=== PATIENT | female | born 1985 | race Hispanic/Latino ===

== ENCOUNTER 2021-03-03 15:58 | Outpatient (CLI) | payer OTHER ==
[2021-03-04 01:42] LABS: SARS-CoV-2 PCR by NAA Not Detected (NotDetected)
== END 2021-03-03 15:59 | disposition home or self-care (01) ==
LOC: CSHLAB 15:58
PROVIDERS: ATTEND Family Medicine
DX: Z01.812 Encounter for preprocedural laboratory examination (principal); Z20.822 Contact with and (suspected) exposure to COVID-19
CPT/HCPCS: U0003; U0005

== ENCOUNTER 2021-03-06 13:09 | Day surgery (SDC) | payer OTHER ==
[2021-03-06 14:15] VITALS: BMI 35.2
[2021-03-06] MEDS ORDERED: hydrALAZINE 20 MG/ML VIAL SLOW IVP PRN (14:47)
[2021-03-06 14:52] LABS: Fetal Membranes Rupture No Membranes Rupture (No Rupture)
== END 2021-03-06 15:23 | disposition home health service (06) ==
LOC: CSHLD/OP 13:09
PROVIDERS: ATTEND Family Medicine
DX: O47.1 False labor at or after 37 completed weeks of gestation (principal); O99.283 Endocrine, nutritional and metabolic diseases complicating pregnancy, third trimester; O48.0 Post-term pregnancy; O09.523 Supervision of elderly multigravida, third trimester; O36.8130 Decreased fetal movements, third trimester, not applicable or unspecified; E03.9 Hypothyroidism, unspecified; Z3A.40 40 weeks gestation of pregnancy; Z90.49 Acquired absence of other specified parts of digestive tract; Z79.899 Other long term (current) drug therapy
CPT/HCPCS: 84112; 99283

== ENCOUNTER 2021-03-07 12:00 | Inpatient (IN) | payer MEDICAID, OTHER, SELFPAY ==
[2021-03-07] MEDS ORDERED: NS w/ Oxytocin 30 units 500 ML ONE (13:43)
[2021-03-07] MEDS ORDERED: Acetaminophen 500 MG TAB PO PRN (13:49)
[2021-03-07] MEDS ORDERED: Promethazine HCl 25 MG/ML VIAL IM PRN (13:49)
[2021-03-07] MEDS ORDERED: Carboprost 250 MCG/ML AMP IM PRN (13:49)
[2021-03-07] MEDS ORDERED: hydrALAZINE 20 MG/ML VIAL SLOW IVP PRN ×2 (13:49→23:04)
[2021-03-07] MEDS ORDERED: Butorphanol Tartrate 1 MG/ML VIAL SLOW IVP PRN (13:49)
[2021-03-07] MEDS ORDERED: HYDROcodone/Acetaminophen 5/325 mg Tablet PO PRN ×2 (13:49→23:04)
[2021-03-07] MEDS ORDERED: Diphenoxylate HCl/Atropine Tablet PO PRN (13:49)
[2021-03-07] MEDS ORDERED: Ondansetron PF 4 MG/2 ML Vial IVP PRN ×2 (13:49→23:04)
[2021-03-07] MEDS ORDERED: Methylergonovine 0.2 MG/ML VIAL IM PRN (13:49)
[2021-03-07] MEDS ORDERED: Ibuprofen 800 MG TAB PO PRN (13:49)
[2021-03-07] MEDS ORDERED: Misoprostol 200 MCG TAB PR PRN (13:49)
[2021-03-07] MEDS ORDERED: Lactated Ringer's 1,000 ML IV SCH (14:00)
[2021-03-07] MEDS ORDERED: NS w/ Oxytocin 30 units 500 ML IVPB SCH (14:00)
[2021-03-07] MEDS ORDERED: NS w/ Oxytocin 30 units 500 ML IV SCH ×3 (14:00→23:04)
[2021-03-07 14:24] LABS: Hemoglobin 7.7 g/dL (12.0-15.5); Mean Corpuscular HGB CONC 29.4 g/dL (32.0-36.0); Mean Corpuscular Hemoglobin 22.3 pg (27.0-33.0); Mean Corpuscular Volume 75.7 fl (81.6-98.3); Mean Platelet Volume 12.1 fl (7.4-10.4); Platelet Count 144 10x3/uL (150-450); RBC Distribution Width 16.3 % (11.5-14.5); Red Blood Cell (RBC) Count 3.46 10x6/uL (3.90-5.03); White Blood Cell (WBC) Count 7.8 10x3/uL (3.5-10.5)
[2021-03-07 15:20] LABS: Hep B Surf Ag Non-Reactive S/CO (NonReactive)
[2021-03-07 15:21] LABS: Syphilis Antibody Nonreactive (Nonreactive); Syphilis Antibody Index 0.12 S/CO (<1.00 Non-Reactive)
[2021-03-07 15:24] LABS: HBSAg Index 0.19 S/CO (0-0.99)
[2021-03-07] MEDS ORDERED: Carboprost 250 MCG/ML AMP ONE (17:09)
[2021-03-07] MEDS ORDERED: Proctozone-HC 30 GM TUBE TOP SCH (23:04)
[2021-03-07] MEDS ORDERED: Milk Of Magnesia 30 ML UDCUP PO PRN (23:04)
[2021-03-07] MEDS ORDERED: Bisacodyl 10 MG SUPP PR PRN (23:04)
[2021-03-07] MEDS ORDERED: Boostrix 0.5 ML (Tdap) VIAL IM ONE (23:04)
[2021-03-07] MEDS ORDERED: Lanolin Ointment 7 GM TUBE TOP PRN (23:04)
[2021-03-07] MEDS ORDERED: diphenhydrAMINE 25 MG CAP PO PRN (23:04)
[2021-03-07] MEDS ORDERED: Preparation H Ointment 28 GM TUBE PR PRN (23:04)
[2021-03-07] MEDS ORDERED: Hydrocortisone 2.5% Cream 30 GM TUBE TOP SCH (23:15)
[2021-03-08] MEDS: Ibuprofen 800 MG TAB PO SCH ×3 (06:34→14:57)
[2021-03-08] MEDS: Docusate Calcium (SURFAK) 240 MG CAP PO SCH ×2 (06:35→09:34)
[2021-03-08] MEDS ORDERED: Hydrocortisone 2.5% Cream 30 GM TUBE TOP SCH (09:00)
[2021-03-08] MEDS ORDERED: Prenatal Vitamin 1 TAB PO SCH (09:00)
[2021-03-08] MEDS: Ferrous Sulfate 325 MG TAB PO SCH ×2 (09:35→19:04)
[2021-03-08 16:52] VITALS: BP 114/75; TEMP 98.7
== END 2021-03-08 19:00 | disposition home or self-care (01) | DRG 807 ==
LOC: CSHLD/OP 12:00 → CSHLD 13:17 → CSHPP 20:03
PROVIDERS: ADMIT Family Medicine; ATTEND Family Medicine
PROC: 10E0XZZ Delivery of Products of Conception, External Approach (ICD-10-PCS; principal; 2021-03-07)
DX: O36.60X0 Maternal care for excessive fetal growth, unspecified trimester, not applicable or unspecified (principal); Z37.0 Single live birth; Z3A.40 40 weeks gestation of pregnancy; O69.1XX0 Labor and delivery complicated by cord around neck, with compression, not applicable or unspecified; O77.0 Labor and delivery complicated by meconium in amniotic fluid
CPT/HCPCS: 84112; 85027; 86780; 86850; 86900; 86901; 87340; 99283